=== PATIENT | male | born 1955 | race Caucasian/White ===

== ENCOUNTER 2023-05-08 06:24 | Emergency (ER) | payer MEDICARE, OTHER, SELFPAY ==
--- NOTE | ~2023-05-08 | XR_ITS ---
EXAMINATION: XR SACRUM AND COCCYX CLINICAL INFORMATION: Back pain. COMPARISON: None available. TECHNIQUE: 2 views of the sacrum and 2 views of the coccyx were obtained. FINDINGS: There is normal sacrococcygeal curvature. Severe degenerative disc disease is seen at L5-S1. The remainder of the intervertebral disc spaces are unremarkable. No acute fracture is seen. The soft tissues are unremarkable. XR/XR sacrum coccyx min 2V IMPRESSION: L5-S1 severe degenerative disc disease. No acute fracture.
--- NOTE | ~2023-05-08 | XR_ITS ---
EXAMINATION: XR LUMBOSACRAL SPINE CLINICAL INFORMATION: Back pain. COMPARISON: None available. TECHNIQUE: Three views of the lumbosacral spine. FINDINGS: Severe degenerative disc disease is seen at L5-S1. The remainder of the intervertebral disc spaces are unremarkable. No acute fracture is seen. The soft tissues are unremarkable. XR/XR lumbar spine 2-3V IMPRESSION: L5-S1 severe degenerative disc disease. No acute fracture.
[2023-05-08 06:35] VITALS: BP 167/80; PULSE 64; RESP 20; TEMP 36.4; O2SAT 97; BMI 41.0
[2023-05-08 08:45] LABS: MANUAL DIFF FLAG NO
[2023-05-08 08:47] VITALS: BP 155/86; PULSE 74; RESP 18; TEMP 36.8; O2SAT 97
[2023-05-08 08:51] LABS: Appearance Urine Clear; Color Urine Yellow; Glucose Urine UA Negative (Negative); Leukocyte Esterase Urine Negative (Negative); Nitrite Urine Negative (Negative); PH 6.5 (5.0-9.0); Urine Blood Negative (Negative); Urine Ketones Negative (Negative); Urine Protein Trace mg/dL (Neg-Trace)
[2023-05-08 09:01] LABS: Basophils Absolute Auto 0.1 X10*3/uL (0.0-0.2); Basophils Percent Auto 0.5 % (0-2); Eosinophils Absolute Auto 0.1 X10*3/uL (0.0-0.4); Eosinophils Percent Auto 0.6 % (0-4); Hematocrit 48.8 % (42.0-52.0); Hemoglobin 16.3 g/dl (14.0-18.0); Imm Gran Abs Auto 0.07 X10*3/uL (0.00-0.03); Imm Gran Pct Auto 0.7 % (0.0-0.4); Lymphocytes Absolute Auto 4.3 X10*3/uL (1.2-4.9); Lymphocytes Percent Auto 45.1 % (20-40); Mean Corpuscular HGB Conc 33.4 g/dl (31.0-36.0); Mean Corpuscular Hemoglobin 30.9 pg (27.0-33.0); Mean Corpuscular Volume 92.4 fL (80.0-98.0); Mean Platelet Volume 9.1 fL (9.4-12.4); Monocytes Absolute Auto 0.7 X10*3/uL (0.1-1.2); Monocytes Percent Auto 7.8 % (2-11); Neutrophils Absolute Auto 4.3 x10*3/uL (2.0-8.3); Neutrophils Percent Auto 45.3 % (45-73); Platelet Count 141 X10*3/uL (160-400); Red Blood Count 5.28 X10*6/uL (4.60-5.80); Red Cell Distribution Width 13.4 % (11.0-16.0); White Blood Count 9.5 X10*3/uL (4.8-10.8)
[2023-05-08 09:17] LABS: Alanine Aminotransferase 31 U/L (0-40); Alkaline Phosphatase 42 U/L (39-117); Anion Gap 13 (12-20); Aspartate Amino Transferase 17 U/L (5-37); Blood Urea Nitrogen 23 mg/dL (9-16); Calcium 9.1 mg/dL (8.4-10.2); Carbon Dioxide 25 mmol/L (22-29); Chloride 104 mmol/L (96-108); Creatinine Clr Calc Pharmacy 94.3; Estimated Glomerular Filt Rate > 60; Glucose Random 105 mg/dL (60-115); Potassium 4.9 mmol/L (3.3-5.1); Sodium 137 mmol/L (135-145); Total Protein 7.3 g/dL (6.5-8.0)
--- NOTE | 2023-05-08 09:21 | ED_ITS ---
[facility] - General Adult General Chief complaint: Abdominal Pain Stated complaint: back pain radiates across stomach Time Seen by Provider: 05/08/23 09:02 Source: patient and RN notes reviewed Mode of arrival: ambulatory Limitations: no limitations History of Present Illness HPI narrative: This is a 67-year-old male, with a past medical history of atrial fibrillation on Eliquis, ZELDA, hypertension, and asthma, presenting to the emergency department with complaints of low back pain since yesterday morning. Patient s tates that while he was throwing away a piece of trash he suddenly developed back pain. He states that the pain has increasingly become more severe. He states that the pain intermittently radiates forward into his abdomen. He states that the pain worsens with movement. Patient denies fevers, chills, chest pain, shortness breath, palpitations, abdominal pain, nausea, vomiting or diarrhea. Denies urinary or bowel incontinence. No dysuria, urinary frequency or urgency. Denies saddle anesthesia. Denies urinary or bowel retention. He has a history of back pain, had surgery over 20 years ago and has not had a problem since. No other complaints or concerns at this time. MD complaint: Back pain Onset (ago): day(s) Location: back Radiation: abdomen Severity: moderate Relieving factors: immobilization and medication Exacerbating factors: none and movement Associated symptoms: denies other symptoms Treatments prior to arrival: none Related Data Previous Rx's Medication Instructions Recorded cyclobenzaprine 10 mg tablet 10 mg PO TID PRN muscle spasm 5 05/08/23 days #15 tabs lidocaine 5 % topical patch 1 patch topical DAILY #30 ea 05/08/23 (Lidoderm) oxycodone 5 mg tablet 5 mg PO Q6H PRN pain #7 tabs 05/08/23 prednisone 20 mg tablet 40 mg PO DAILY 5 days #10 tabs 05/08/23 Allergies Allergy/AdvReac Type Severity Reaction Status Date / Time No Known Allergies Allergy Verified 05/08/23 11:10 Review of Systems Review of Systems: Yes all other systems are reviewed and are negative Constitutional: Constitutional: Reports as per [facility] Past Medical History Attestation statement: The following information was validated with the patient. Social History Social History Alcohol intake: current Alcohol intake frequency: 0-2 drinks per day Smoked in Last 30 Days: No Use of substances other than those prescribed or required for medical reasons: No Advance Directives: No Advance Directives Information Provided: Yes Physical Exam ED Vital Signs: Vital Signs - 24 hr 05/08/23 10:41 Temperature 98.4 F Pulse Rate 78 Respiratory Rate 18 Blood Pressure 148/80 H Pulse Oximetry 97 Oxygen Delivery Method Room Air BMI result Body Mass Index 41.0 Const General: cooperative, comfortable and no acute distress Orientation/consciousness: patient oriented x3 Limitations: no limitations HENMT Head: Yes normal to inspection, Yes normocephalic and Yes atraumatic Ears: hearing grossly normal bilaterally General nose exam: Normal external nose present Face and sinus: Yes normal facial exam Mouth: Normal oral and palatal mucosa present, oropharynx normal and moist mucous membranes Throat: Yes posterior oropharynx normal Eyes General: appearance normal, both eyes and all related structures Eyelids: Yes eyelids normal Conjunctivae: conjunctivae normal Sclerae: sclerae normal Pupils: Equal, round and reactive pupils present EOM: EOMs intact bilaterally Neck Neck: Yes normal visual inspection, Yes full ROM and Yes no lymphadenopathy Lymphatic: no lymphadenopathy noted Chest Chest palpation & inspection: normal inspection of the chest Resp Effort & Inspection: normal respiratory effort and able to speak in complete sentences Auscultation: clear to auscultation bilaterally, no crackles, no rales, no rhonchi and no wheezes Cardio Rate: regular rate Rhythm: regular rhythm Heart sounds: S1 normal heart sound present and S2 normal heart sound present GI Other: Abdomen is soft, nontender, nondistended. Normoactive bowel sounds present in all 4 quadrants. Inspection: Yes normal to inspection General: Yes no CVA tenderness Back/Spine/Pelvis Other: No tenderness palpation along the midline spine. No paraspinal muscle tenderness to palpation. Pain only with movement. Patient is ambulatory, 5/5 strength in lower extremities. Sensation intact distally Back: no CVA tenderness Cervical Spine: normal cervical lordosis Thoracic/Lumbar Spine: thoracic and lumbar spine normal to inspection Skin General skin exam: no rashes or lesions noted Trauma: no lacerations or abrasions Wounds: no wounds Neuro General: patient oriented x3 and moves all extremities Cranial nerves: Yes Equal, round and reactive pupils present Extrem Other: Distal sensation circulation intact. No calf tenderness. General: Yes normal to inspection Right upper extremity: normal to inspection Left upper extremity: normal to inspection Right lower extremity: normal to inspection Left lower extremity: normal to inspection Course Reevaluation(s) Reevaluation #1: X-rays revealing severe degenerative disc disease at L5-S1. Discussed findings with patient. Patient's vital signs stable. Patient appears comfortable, in no acute distress. Labs unremarkable, no hematuria. Patient has no CVA tenderness or urinary symptoms to suggest nephrolithiasis. Will discharge patient on course of prednisone, muscle relaxants, lidocaine patches, and oxycodone. Advised to continue early take Tylenol. Given return precautions if any new or worsening symptoms occur. Time: 11:01 Medications Administered Discontinued Medications Generic Name Dose Route Start Last Admin Trade Name Freq PRN Reason Stop Dose Admin Acetaminophen 975 mg 05/08/23 09:18 05/08/23 10:12 Acetaminophen 325 Mg Tablet PO 05/08/23 09:19 975 mg ONCE ONE Administration Medical Decision Making Medical Decision Making [facility] Narrative: 67-year-old male presenting to the emergency department for evaluation of back pain since yesterday. This patient presents with back pain most consistent with lumbar back strain. Differential diagnoses includes lumbago versus mu sculoskeletal spasm / strain versus sciatica.No back pain red flags on history or physical. Presentation not consistent with malignancy (lack of history of malignancy, lack of B symptoms), fracture (no trauma, no bony tenderness to palpation), cauda equina syndrome (no bowel or urinary incontinence/retention, no saddle anesthesia, no distal weakness), AAA, viscus perforation , pyelonephritis (afebrile, no CVAT, no urinary symptoms). Given the clinical picture, will obtain x-rays for further evaluation. Differential Diagnosis Differential Diagnoses: The differential diagnosis associated with the presentation includes See above Lab Data [facility] Lab Attestation statement: I reviewed the patient's lab results. See above 05/08/23 08:39 05/08/23 08:39 Labs: Lab Results 05/08/23 05/08/23 05/08/23 Range/Units 08:39 08:39 08:39 WBC 9.5 (4.8-10.8) X10*3/uL RBC 5.28 (4.60-5.80) X10*6/uL Hgb 16.3 (14.0-18.0) g/dl Hct 48.8 (42.0-52.0) % MCV 92.4 (80.0-98.0) fL MCH 30.9 (27.0-33.0) pg MCHC 33.4 (31.0-36.0) g/dl RDW 13.4 (11.0-16.0) % Plt Count 141 L (160-400) X10*3/uL MPV 9.1 L (9.4-12.4) fL Immature Gran % (Auto) 0.7 H (0.0-0.4) % Neut % (Auto) 45.3 (45-73) % Lymph % (Auto) 45.1 H (20-40) % [place] % (Auto) 7.8 (2-11) % Eos % (Auto) 0.6 (0-4) % Baso % (Auto) 0.5 (0-2) % Lymph # (Auto) 4.3 (1.2-4.9) X10*3/uL [place] # (Auto) 0.7 (0.1-1.2) X10*3/uL Eos # (Auto) 0.1 (0.0-0.4) X10*3/uL Baso # (Auto) 0.1 (0.0-0.2) X10*3/uL Abs Immat Gran (auto) 0.07 H (0.00-0.03) X10*3/uL Absolute Neuts (auto) 4.3 (2.0-8.3) x10*3/uL Absolute Nucleated RBC 0.000 (0.0-0.012) X10*3/uL Nucleated RBC % (auto) 0.0 (0.0-0.2) /100WBC Sodium 137 (135-145) mmol/L Potassium 4.9 (3.3-5.1) mmol/L Chloride 104 (96-108) mmol/L Carbon Dioxide 25 (22-29) mmol/L Anion Gap 13 (12-20) BUN 23 H (9-16) mg/dL Creatinine 1.09 (0.5-1.4) mg/dL Estim Creat Clear Calc 94.3 Estimated GFR > 60 Random Glucose 105 (60-115) mg/dL Calcium 9.1 (8.4-10.2) mg/dL Total Bilirubin 1.0 (0.0-1.0) mg/dL AST 17 (5-37) U/L ALT 31 (0-40) U/L Alkaline Phosphatase 42 (39-117) U/L Total Protein 7.3 (6.5-8.0) g/dL Albumin 4.0 (3.5-5.0) g/dL Urine Color Yellow Urine Appearance Clear Urine pH 6.5 (5.0-9.0) Ur Specific [place] 1.020 (1.005-1.025) Urine Protein Trace (Neg-Trace) mg/dL Urine Glucose (UA) Negative (Negative) mg/dL Urine Ketones Negative (Negative) mg/dL Urine Blood Negative (Negative) Urine Nitrite Negative (Negative) Ur Leukocyte Esterase Negative (Negative) Radiology Impression Discussion of test interpretation with radiology: I have reviewed the radiologist's reading. Radiologist Impression: EXAMINATION: XR LUMBOSACRAL SPINE CLINICAL INFORMATION: Back pain. COMPARISON: None available. TECHNIQUE: Three views of the lumbosacral spine. FINDINGS: Severe degenerative disc disease is seen at L5-S1. The remainder of the intervertebral disc spaces are unremarkable. No acute fracture is seen. The soft tissues are unremarkable. XR/XR lumbar spine 2-3V IMPRESSION: L5-S1 severe degenerative disc disease. No acute fracture. ? Dictated By: Liang Flanagan MD Signed By: <Electronically signed by Liang Flanagan MD in [place]> Discharge Plan Discharge Clinical Impression: Back pain, Degenerative disc disease at L5-S1 level Patient Disposition: Home, Self-Care Instructions: Acute Low Back Pain (ED) Additional Instructions: Your back x-rays revealed severe degenerative disc disease seen at L5-S1. Please follow-up with your primary care physician regarding this finding. You may need additional images such as an MRI. Please take prescribed medication as directed. Continue taking Tylenol as directed as needed for pain. Only take oxycodone for severe pain - this may cause drowsiness, do not drink alcohol or drive while taking this. Please be as muscle relaxants can also cause drowsiness. If any new or worsening symptoms occur, including but not limited to numbness or tingling into your groin, urinary or bowel incontinence or retention, please r eturn for re-evaluation. Prescriptions: New prednisone 20 mg tablet 40 mg PO DAILY 5 Days Qty: 10 0RF cyclobenzaprine 10 mg tablet 10 mg PO TID PRN (Reason: muscle spasm) 5 Days Qty: 15 0RF oxycodone 5 mg tablet 5 mg PO Q6H PRN (Reason: pain) Qty: 7 0RF Rx Instructions: Partial Fill upon patient request. lidocaine [Lidoderm] 5 % adhesive patch,medicated 1 patch topical DAILY Qty: 30 0RF Rx Instructions: leave on most painful area for up to 12 hrs Interventions: ED Discharge Assessment Last Done: 05/08/23 11:31 Discharge Date/Time: 05/08/23 11:32
[2023-05-08] MEDS: Acetaminophen 325 MG TABLET 975 MG PO (10:12)
[2023-05-08 10:41] VITALS: BP 148/80; PULSE 78; RESP 18; TEMP 36.9; O2SAT 97
== END 2023-05-08 11:32 | disposition home or self-care (01) ==
PROVIDERS: Emergency Provider Emergency Medicine; PCP Internal Medicine
DX: M54.50 Low back pain, unspecified (principal); M51.37 Other intervertebral disc degeneration, lumbosacral region; I10 Essential (primary) hypertension; I48.91 Unspecified atrial fibrillation; Z79.01 Long term (current) use of anticoagulants
CPT/HCPCS: 36415; 72100; 72220; 80053; 81003; 85025; 99283; 99284